=== PATIENT | female | born 1935 | race Caucasian/White ===

== ENCOUNTER 2019-02-20 22:09 | Inpatient (IN) ==
[2019-02-20] MEDS ORDERED: CARDIZEM IV ONE (22:13)
[2019-02-20] MEDS ORDERED: NS 1,000 ML IV ONE ×2 (22:13→23:29)
[2019-02-20 22:22] LABS: BASO# 0.05 X1000 (0.0-0.2); BASO% 0.8 % (0.0-0.8); EOS% 4.9 % (0.0-10.0); HEMATOCRIT 34.1 % (37.0-47.0); HEMOGLOBIN 10.8 g/dL (12.0-16.0); LYMPH% 17.9 % (20.5-51.1); MCH 26.3 PG (27-31); MCHC 31.7 g/dL (33-37); MCV 83.2 FL (81-99); MONO# 1.06 X1000 (0.11-0.59); MONO% 17.2 % (1.7-9.3); MPV 9.5 FL (7.4-10.4); NEUT# 3.64 X1000 (1.4-6.5); NEUT% 59.2 % (42.2-75.2); PLT 196 X1000 (130-400); RDW 14.2 % (11.5-14.5); WBC 6.15 X1000 (4.8-10.8)
[2019-02-20 22:33] LABS: AGAP 12; ALKALINE PHOSPHATASE 111 U/L (32-104); BUN 12 mg/dL (8-22); CALCIUM 9.2 mg/dL (8.8-10.2); CHLORIDE 102 mmol/L (98-107); COSMO 283; CREATININE 0.7 mg/dL (0.5-0.9); ESTIMATED GFR > 60; GLUCOSE 126 mg/dL (70-104); GOT 22 U/L (10-30); GPT 12 U/L (10-36); MAGNESIUM 1.6 mg/dL (1.5-2.7); POTASSIUM 4.1 mmol/L (3.5-5.1); SODIUM 141 mmol/L (136-145); TCO2 27 mmol/L (25-35); TOTAL PROTEIN 6.2 g/dL (6.3-8.3)
[2019-02-20 23:29] LABS: INR 1.05; PROTIME 14.2 Seconds (11.0-16.0); PTT 31.5 Seconds (22.3-41.8)
[2019-02-20] MEDS ORDERED: ZOFRAN IV PRN (23:30)
[2019-02-20] MEDS ORDERED: TYLENOL PO PRN (23:30)
[2019-02-20] MEDS ORDERED: MORPHINE IV PRN (23:30)
--- NOTE | 2019-02-20 23:39 | PROVIDER DOCUMENTATION ---
This chart was entered by Jenni Burkett Scribe, acting as scribe for Rusty Patton MD. HPI-Chest Pain - General Chief Complaint: Palpitations Stated Complaint: CP Time Seen by Provider: 02/20/19 22:05 Source: patient Allergies/Adverse Reactions: Patient Allergies Allergy/AdvReac Type Severity Reaction Status Date / Time Corticosteroids Allergy Mild NAUSEA Verified 12/25/18 04:22 (Glucocorticoids) morphine Allergy Mild ABDOMINAL Verified 12/25/18 04:22 PAIN Penicillins Allergy Mild RASH Verified 12/25/18 04:22 quinine Allergy Mild HEADACHE Verified 12/25/18 04:22 Sulfa (Sulfonamide Allergy Mild RASH Verified 12/25/18 04:22 Antibiotics) Home Medications: Home Medication List Medication Instructions Recorded Confirmed Last Taken Type LISINOpril [Prinivil] 40 mg PO DAILY 02/16/14 12/25/18 06/03/16 History ROSUVAstatin [Crestor] 20 mg PO QHS 02/16/14 12/25/18 1 Day Ago History ~11/03/15 Diltiazem HCl [Diltiazem 24Hr ER] 300 mg PO DAILY #0 02/17/14 12/25/18 11/04/15 Rx Isosorbide Mononitrate [Isosorbide 60 mg PO BID 02/08/15 12/25/18 11/04/15 History Mononitrate ER] Pantoprazole [Protonix] 40 mg PO DAILY 10/04/15 12/25/18 11/04/15 History Zolpidem Tartrate 10 mg PO PRN PRN 10/04/15 12/25/18 1 Day Ago History ~11/03/15 Apixaban [Eliquis] 5 mg PO BID 11/04/15 12/25/18 11/04/15 History Aspirin 81 mg PO DAILY 11/04/15 12/25/18 11/04/15 History Cyclobenzaprine [Flexeril] 10 mg PO PRN PRN 06/14/18 12/25/18 Unknown History Donepezil HCl 5 mg PO HS 06/14/18 12/25/18 Unknown History Nitroglycerin Sl [Nitroglycerin] 0.4 mg SL PRN PRN 06/14/18 12/25/18 Unknown History Alprazolam 0.25 mg PO DAILY PRN PRN 12/25/18 12/25/18 Unknown History Clonidine [Catapres] 0.1 mg PO DAILY PRN PRN 12/25/18 12/25/18 Unknown History Fluoxetine [Prozac] 10 mg PO DAILY 12/25/18 12/25/18 Unknown History Tramadol HCl 50 mg PO TID PRN PRN 12/25/18 12/25/18 Unknown History - History of Present Illness-CP Nature of Presenting Problem: Pt presents with SVT, started today, pt has been having arrthymias on and off for the last couple of months, saw pcp 2 weeks ago and ordered a holter monitor but it wasn't placed until yesterday, pt reports cp, entire chest, comes and goes, no radiation, not having cp now, pt denies f/c, valdez, sob, ap, n/vd/. pt is lying in bed in no acute distress. Location: reports: substernal Chest Pain Radiation: reports: no radiation Quality of Pain: reports: pressure Severity in ED: mild Onset/Duration: 4-6 hours ago Timing: gone now Context/Activities at Onset: reports: none Modifying Factors: improves with: nothing Associated Symptoms: reports: denies symptoms Nitro Today/Relief: no nitro taken today Aspirin Treatment Today: no aspirin today Prior Chest Pain/Cardiac Workup: reports: cardiac cath Similar Symptoms Previously?: Yes Recently Seen Here or By Another Healthcare Provider: No Review of Systems - Adult - REVIEW OF SYSTEMS - ADULT Constitutional: reports: no symptoms reported Eyes: reports: no symptoms reported Ears, Nose, Mouth & Throat: reports: no symptoms reported Cardiovascular: reports: see HPI Respiratory: reports: no symptoms reported Gastrointestinal: reports: no symptoms reported Genitourinary: reports: no symptoms reported Musculoskeletal: reports: no symptoms reported Integumentary: reports: no symptoms reported Neurological: reports: no symptoms reported Psychiatric: reports: no symptoms reported Endocrine: reports: no symptoms reported Hematologic/Lymphatic: reports: no symptoms reported Allergic/Immunologic: reports: no symptoms reported All Other Systems: Reviewed and Negative Past History - Adult - PAST MEDICAL HISTORY-ADULT Review of Records: reports: Old Records Reviewed, Nursing Assessment Review, Medications Reviewed, Social history reviewed & non-contributory. Major Childhood Illnesses: reports: denies history Cardiovascular: reports: CAD, HTN, hyperlipidemia Respiratory: reports: COPD, cancer (Breast) Gastrointestinal: reports: denies history Obstetrical/Gynecological: reports: denies history Genitourinary: reports: denies history Musculoskeletal: reports: denies history Neurological: reports: denies history Psychiatric: reports: denies history Endocrine/Immune: reports: denies history Other Conditions: reports: denies history - PRIOR SURGERIES/PROCEDURES Surgical/Procedure History: reports: appendectomy, cholecystectomy, cardiac stent (x 3), hysterectomy, tonsillectomy, other (Mastectomy) - IMMUNIZATION STATUS Childhood Immunizations: See Nurse Assessment Flu Vaccine: See Nurse Assessment - FAMILY HISTORY Family History: reviewed, not pertinent Physical Exam-General - PHYSICAL EXAM-ADULT Initial Vital Signs Reviewed: Yes - CONSTITUTIONAL General Appearance: appears well - EYES Eyes: PERRL/EOMI - HEAD, EARS, NOSE, MOUTH & THROAT HENMT: normocephalic/atraumatic - NECK Neck: normal inspection - RESPIRATORY Respiratory: no respiratory distress, no accessory muscle use - CARDIOVASCULAR Cardiovascular: tachycardia - GASTROINTESTINAL (ABDOMEN) Abdominal Exam: non tender, soft - LYMPHATIC Lymphatic: no adenopathy - MUSCULOSKELETAL Back Exam: normal inspection Extremity: normal range of motion - SKIN Integumentary: normal color - NEUROLOGIC Neurologic: [place] aide II-XII nml as tested - PSYCHIATRIC Psych/Mental Status: normal mood/affect Progress - PLAN OF CARE/RESULTS Progress/Plan/Lab Results: Vital Signs - 8 hr 02/20/19 22:12 Temperature 97.9 F Pulse Rate 130 H Respiratory Rate 15 Blood Pressure 137/94 O2 Sat by Pulse Oximetry 97 Laboratory Results - last 24 hr 02/20/19 02/20/19 02/20/19 22:05 22:05 22:05 WBC 6.15 RBC 4.10 L Hgb 10.8 L Hct 34.1 L MCV 83.2 MCH 26.3 L MCHC 31.7 L RDW Std Deviation 14.2 Plt Count 196 MPV 9.5 Immature Gran % (Auto) 0.0 Neut % (Auto) 59.2 Lymph % (Auto) 17.9 L Conway % (Auto) 17.2 H Eos % (Auto) 4.9 Baso % (Auto) 0.8 Immature Gran # (Auto) 0.00 Neut # (Auto) 3.64 Lymph # (Auto) 1.10 L Conway # (Auto) 1.06 H Eos # (Auto) 0.30 Baso # (Auto) 0.05 PT INR PTT (Actin FS) Sodium 141 Potassium 4.1 Chloride 102 Carbon Dioxide 27 Anion Gap 12 BUN 12 Creatinine 0.7 Estimated GFR/1.73 m2 > 60 BUN/Creatinine Ratio 17 Glucose 126 H Calculated Osmolality 283 Calcium 9.2 Phosphorus Magnesium 1.6 Total Bilirubin 0.20 AST 22 ALT 12 Alkaline Phosphatase 111 H Troponin T Urx-F-Gdjunlptsoa Pept 349 Total Protein 6.2 L Albumin 4.0 Globulin 2.0 Albumin/Globulin Ratio 2.0 02/20/19 02/20/19 02/20/19 22:05 22:30 22:30 WBC RBC Hgb Hct MCV MCH MCHC RDW Std Deviation Plt Count MPV Immature Gran % (Auto) Neut % (Auto) Lymph % (Auto) Conway % (Auto) Eos % (Auto) Baso % (Auto) Immature Gran # (Auto) Neut # (Auto) Lymph # (Auto) Conway # (Auto) Eos # (Auto) Baso # (Auto) PT 14.2 INR 1.05 PTT (Actin FS) 31.5 Sodium Potassium Chloride Carbon Dioxide Anion Gap BUN Creatinine Estimated GFR/1.73 m2 BUN/Creatinine Ratio Glucose Calculated Osmolality Calcium Phosphorus 6.1 H Magnesium Total Bilirubin AST ALT Alkaline Phosphatase Troponin T < 0.010 Pbg-B-Euvlnvrhpjq Pept Total Protein Albumin Globulin Albumin/Globulin Ratio Orders Category Date Time Status Admit - [facility] Routine AdmDCTranf 02/20/19 23:30 Active Activity - Up Ad Adri ORDERED Care 02/20/19 23:30 Active Call Admitting on Arrival AT ADMISSION Care 02/20/19 23:31 Active Nursing- Obtain EKG ONCE Care 02/20/19 22:12 Active Resuscitation Status Routine Care 02/20/19 23:30 Ordered Saline Loc DIRECTED Care 02/20/19 23:30 Active Vital Signs Order ROUTINE Care 02/20/19 23:30 Active Z-Document. for Tele Applied ORDERED Care 02/20/19 23:32 Active Heart Healthy Diet Diet 02/20/19 Diet Enter Time Active cxr [CHEST-1 VIEW] [RAD] Stat Exams 02/20/19 22:11 Taken CBC WITH ELECTRONIC DIFF [HEME] Stat Lab 02/20/19 22:05 Completed COMPREHENSIVE METABOLIC PANEL [CHEM] Stat Lab 02/20/19 22:05 Completed MAGNESIUM [CHEM] Stat Lab 02/20/19 22:05 Completed PHOSPHORUS [CHEM] Stat Lab 02/20/19 22:30 Completed PRO B-NATRIURETIC PEPTIDE Stat Lab 02/20/19 22:05 Completed PROTIME WITH INR [COAG] Stat Lab 02/20/19 22:05 Completed PTT [COAG] Stat Lab 02/20/19 22:05 Completed TROPONIN T Q8HR Lab 02/21/19 05:00 Uncollected TROPONIN T Q8HR Lab 02/21/19 13:00 Uncollected TROPONIN T Q8HR Lab 02/21/19 21:00 Uncollected TROPONIN T Stat Lab 02/20/19 22:30 Completed 0.9% Sodium Chloride Inj [Ns] 1,000 ml Med 02/20/19 23:29 Active IV 125 mls/hr 0.9% Sodium Chloride Inj [Ns] 1,000 ml Med 02/20/19 22:13 Discontinued IV 999 mls/hr Acetaminophen [Tylenol] Med 02/20/19 23:30 Ordered 650 mg PO Q6H PRN PRN Diltiazem 100 mg/Ns [Cardizem 100 mg/Ns] Med 02/20/19 23:30 Ordered 100 mg in 100 ml IV 2.5 mls/hr Diltiazem [Cardizem] Med 02/20/19 22:13 Discontinued 10 mg IV NOW ONE Morphine Med 02/20/19 23:30 Ordered 2 mg IV Q2H PRN PRN Ondansetron [Zofran] Med 02/20/19 23:30 Ordered 4 mg IV Q4H PRN PRN Oxygen Device Routine Oth 02/20/19 23:31 Active Telemetry [OM.EQ] Routine Oth 02/20/19 23:30 Active ECHO COMPL W/Contrast Definity Routine Ther 02/21/19 06:00 Ordered EKG [EKG] Stat Ther 02/20/19 22:12 Ordered Transfer/Admit Order [TRANSFER] Routine Transfer 02/20/19 23:32 Ordered Result Diagrams: 02/20/19 22:05 02/20/19 22:05 - EKG 1 Time of EKG reading by physician:: 22:01 EKG Read and Signed by:: Rusty Patton EKG Interpretation (*Must complete 3 of following elements*): Abnormal (inferior infarct-age undetermined, anterior infarct-age undetermined, st and t wave abnormality-consider lateral ischemia) Rate: 143 Rhythm: svt [place]: left ST Wave: non-specific ST changes Departure - Departure Date of Disposition Decision: 02/20/19 Time of Disposition Decision: 23:35 DIAGNOSIS: SVT (supraventricular tachycardia) Disposition: ADMITTED INPATIENT 09 Certified Medical Emergency: Emergent Condition: Critical - Critical Care Note This patient required my direct & personal management of CC.: Yes Total Time (mins): 38 Critical Care Statement: This patient required my direct personal management to treat or rule out processes, the absence of which, could potentiallly result in sudden, clinically significant life or limb threatening deterioration. Attestation - Physician/ RICHAR Attestation Patient care was provided by Advanced Practice Provider:: No The physician spent face to face time with patient:: Yes Advanced Practice Provider documentation review:: Supervising physician onsite and consulted in the evaluation and care of this patient. The physician did have a face to face encounter with the patient. This chart was documented by the indicated scribe, (Jenni Burkett Scribe) and accurately reflects the services I performed and decisions made by me, Rusty Patton MD, as attested by the provider's signature.
[2019-02-21] MEDS ORDERED: CARDIZEM 125/NS 125 MG/125 ML IVPB ONE (00:34)
[2019-02-21] MEDS: CARDIZEM 100 MG/NS 100 MG/100 ML IVPB IV SCH ×2 (00:44→05:37)
--- NOTE | 2019-02-21 07:19 | Diag Imaging Result Doc PS360 ---
EXAM: CHEST-1 VIEW - 02/20/2019 HISTORY: chest pain TECHNIQUE: Portable chest COMPARISON: 02/08/2019 FINDINGS: Heart size is normal. There is tortuosity of the thoracic aorta similar to prior. There is stable elevation of the right hemidiaphragm. The lungs appear clear. There is no pleural effusion or pneumothorax identified. IMPRESSION: No acute changes. Electronically signed by Rene Campbell 02/21/2019 7:17 AM
[2019-02-21] MEDS ORDERED: PROZAC PO SCH (09:00)
[2019-02-21] MEDS ORDERED: CARDIZEM CD PO ONE ×4 (09:32→11:30)
[2019-02-21] MEDS ORDERED: AMBIEN PO PRN (09:50)
[2019-02-21] MEDS ORDERED: CATAPRES PO PRN (09:50)
[2019-02-21] MEDS ORDERED: FLEXERIL PO PRN (09:50)
[2019-02-21] MEDS ORDERED: ULTRAM PO PRN (09:50)
[2019-02-21] MEDS ORDERED: NITROGLYCERIN SL PRN (09:50)
[2019-02-21] MEDS ORDERED: XANAX PO PRN (09:50)
[2019-02-21] MEDS ORDERED: ASPIRIN PO SCH (10:00)
[2019-02-21] MEDS ORDERED: ELIQUIS PO SCH ×3 (10:15→21:00)
--- NOTE | 2019-02-21 10:56 | EKG Report ---
Test Performed on : 02/21/2019 09:54:36 AM Test Reason : AFIB Blood Pressure : / mmHG Vent. Rate : 081 BPM Atrial Rate : 081 BPM P-R Int : 174 ms QRS Dur : 078 ms QT Int : 362 ms P-R-T Axes : 048 027 090 degrees QTc Int : 420 ms Normal sinus rhythm. Anteroseptal infarct (cited on or before 04-JUN-2016) Abnormal ECG When compared with ECG of 20-FEB-2019 22:00, (Unconfirmed) Vent. rate has decreased BY 62 BPM QRS duration has decreased Criteria for Inferior infarct are no longer present Questionable change in initial forces of Septal leads T wave amplitude has decreased in Anterior leads T wave inversion no longer evident in Lateral leads Confirmed by Dao Jaquez MD ([id number]) on 02/24/2019 11:11:54 AM
[2019-02-21] MEDS ORDERED: CARDIZEM PO ONE (11:03)
[2019-02-21 12:26] VITALS: BP 171/84
[2019-02-21] MEDS ORDERED: ELIQUIS PO ONE (13:14)
--- NOTE | 2019-02-21 13:34 | CARDIOLOGY CONSULTATION ---
DATE: 02/21/2019 HISTORY OF PRESENT ILLNESS: An 83-year-old lady with history of atrial fibrillation, comes with complaints of increasing palpitations. She was noted to have a heart rate significantly elevated associated with shortness of breath. The patient denies chest pain suggestive of angina. The patient has been having increasing episodes of palpitations off and on for the last 2 weeks. Associated with that, she had some chest discomfort as well. There is no dizziness or syncope. REVIEW OF SYSTEMS: A 14 point review of system was done.Respiratory System: There is no history of cough, expectoration, hemoptysis. There is no history of fevers or chills. Endocrine System: Stable. When she came to the emergency room, she had a heart rate of 140 beats per minute. Subsequently she converted to sinus rhythm. PAST MEDICAL HISTORY: 1. Coronary artery disease status post stent placement to left anterior descending artery by cardiac catheterization 06/20/2008. 2. Last cardiac catheterization, 05/13/2013. LAD and RCA stents were patent. 3. Last stress test was in 2013. There was no evidence of ischemia. 4. History of paroxysmal atrial fibrillation. 5. Hypertension. 6. Hyperlipidemia. 7. 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 HOME MEDICATIONS: Include: 1. Eliquis 5 mg. 2. Alprazolam 0.25. 3. Tramadol 50. 4. Donepezil 5. 5. Enteric-coated aspirin 81. 6. Zolpidem 10. 7. Isosorbide 60. 8. Diltiazem 300. 9. Lisinopril 40. 10. Lovastatin 28. ALLERGIES: She is allergic to corticosteroid, penicillin, quinine. PHYSICAL EXAMINATION: On examination, blood pressure was 170/80. Cardiovascular System: Normal jugular venous pressure. There no thyromegaly. There was no carotid bruit. First and second heart sounds were heard. There is faint systolic murmur. Respiratory System: Normal air entry. There were no crepitations or rhonchi. Abdomen was soft, nontender. There was no guarding or rigidity. Bowel sounds were heard. Central nervous system: Alert and oriented. Was moving all 4 extremities. Examination of extremities revealed no pedal edema. HEENT: Atraumatic, normocephalic. Pupils were equal and reacting to light. ASSESSMENT AND PLAN: Ms. Abril Mims is an 83-year-old lady with history of coronary artery disease, status post stent placement to left anterior descending artery and right coronary artery in the past, paroxysmal atrial fibrillation, hypertension, and hyperlipidemia, who comes with complaints of increasing palpitations. Noted to be in atrial fibrillation with rapid ventricular rate. Currently, she is in sinus rhythm. LABORATORY EXAMINATION: Sodium 141, potassium 4.1, BUN 12, creatinine 0.7. Cardiac enzymes were negative. Hematology: Hemoglobin 10, hematocrit 34, platelet count of 196. RECOMMENDATIONS: 1. Currently she is in sinus rhythm. Her Cardizem was increased to 360. I agree with that. 2. For anticoagulation, she is on Eliquis 2.5 mg twice daily in addition to aspirin. Given her known coronary artery disease, would recommend continuing with that. 3. Hypertension. Change of medications as above. In addition, she takes lisinopril. I have not made any changes. 4. Hyperlipidemia. She is on Crestor 20 mg a day. Would recommend continuing medications. 5. She has gastroesophageal reflux disease. Continue with Protonix daily. Thank you for the consult. We will follow hospital course. cc: Chang Aldana MD
--- NOTE | 2019-02-21 13:39 | PROGRESS NOTE ---
DATE: 02/21/2019 SUBJECTIVE: Patient has no major complaints. She came in with chest pain, shortness of breath, and atrial fibrillation with rapid ventricular response. That has since vastly improved. She has spontaneously converted. She is usually on long-term Cardizem and she is on Eliquis. She is followed by Dr. Key. OBJECTIVE: Her exam really unremarkable. No swelling, no rales, no rhonchi. Heart rate is now regular. PLAN: To increase her Cardizem. We have ordered an echo. We have ordered serial enzymes. Cardiology consult and we will follow accordingly. This is a [id number] encounter note with Cecelia Sosa. cc: MD Lakhwinder Sargent MD
--- NOTE | 2019-02-21 14:47 | HISTORY AND PHYSICAL ---
PRIMARY CARE PROVIDER: Dr. Lakhwinder Huang. PHOTOGRAPHER ASSISTANT: Dr. Key. CHIEF COMPLAINT: Heart rate running away with shortness of breath and chest pain. HISTORY OF PRESENT ILLNESS: Ms. Mims is an 83-year-old female who carries a past medical history of coronary artery disease status post OH with 3 stents, hypertension, hyperlipidemia, COPD, right breast cancer with right mastectomy, paroxysmal atrial fibrillation, who stated at home she could feel her heart rate running away with her. She took her regular medicines. It calmed down a little bit. However, late yesterday afternoon, her heart rate started running away with her again. She took some more medications, it did not improve. She took a low-dose aspirin. She became short of breath, started having chest pain and felt a squeezing sensation around her waistline like somebody was tightening a belt, so she came to the ED where she was found to be in atrial fibrillation with RVR. She was given IV bolus of Cardizem, and was going to be initiated on a Cardizem drip. However, she converted, stayed the night in the ICU. She has been in sinus rhythm since. She has been evaluated by Cardiology. We will have her follow up with Dr. Key as an outpatient and will have her repeat an echocardiogram. I did increase her p.o. Cardizem to 360 from 300. PAST MEDICAL HISTORY: 1. Coronary artery disease with OH and 3 stents. 2. Hypertension. 3. Hyperlipidemia. 4. COPD. 5. Right breast cancer with right mastectomy. 6. Paroxysmal atrial fibrillation. PAST SURGICAL HISTORY: Right mastectomy, appendectomy, cholecystectomy, PTCA with stents, hysterectomy, tonsillectomy. SOCIAL HISTORY: She lives alone. She is originally from the [place] and came down here to help her sister take care of her mother who is now . She does have a daughter that lives nearby. No tobacco, alcohol or illicit drug use. She also lives with a small dog. She did have a fall with that dog 5 days ago. There was some old bruising to her left side of her forehead and cheek as well as some bruising and scrapes to her left shoulder. FAMILY HISTORY: Cancer in both mother and father, unknown tight. Two brothers with OH. ALLERGIES: Corticosteroid causes nausea. Morphine, abdominal pain. Penicillin, rash. Quinine, headache. Sulfa, rash. HOME MEDICATIONS: 1. Crestor 20 mg p.o. at bedtime. 2. Xanax 0.25 mg p.o. daily p.r.n. anxiety. 3. Aspirin 81 mg p.o. daily. 4. Catapres 0.1 mg p.o. daily p.r.n. blood pressure. 5. Donepezil 5 mg p.o. at bedtime. 6. Eliquis 2.5 mg p.o. b.i.d. 7. Flexeril 10 mg p.o. p.r.n. 8. Fluoxetine 20 mg p.o. daily. 9. Isosorbide mononitrate 60 mg p.o. b.i.d. 10. Nitroglycerin sublingual 0.4 mg sublingual p.r.n. chest pain. 11. Prinivil 40 mg p.o. daily. 12. Protonix 40 mg p.o. daily. 13. Tramadol 50 mg p.o. t.i.d. p.r.n. pain. 14. Ambien 10 mg p.o. p.r.n. sleep. 15. Cardizem CD 300 mg p.o. daily. This has been increased to 360 daily. REVIEW OF SYSTEMS: A 14 point review of systems completely negative except for those mentioned in HPI. DISCHARGE DIET: Healthy heart. PHYSICAL EXAMINATION: VITAL SIGNS: Temperature is 97.9 degrees temporal, heart rate 78, respirations 15, blood pressure 171/84, O2 is 97% on room air. GENERAL: Ms. Mims is a feisty 83-year-old female who is sitting up in the bed eating breakfast. No acute distress. HEENT: Atraumatic, normocephalic. PERRL. NECK: Supple trachea midline. CARDIOVASCULAR: S1, S2 appreciated. No murmurs, gallops, rubs noted. RESPIRATORY: Lung sounds clear bilaterally. GASTROINTESTINAL: Soft, nontender, nondistended. Positive bowel sounds 4 quadrants. EXTREMITIES: Negative for edema. No JVD noted. SKIN: She does have prednisone type looking skin to her upper extremities. She has bruising, old greenish-yellow bruises to her left forehead, her left cheek as well as bruising to her right shoulder with some scrapings secondary from a fall that she had obtained 5 days earlier after tripping over her little dog. NEUROLOGIC: No focal deficits noted. DIAGNOSTIC DATA: At first, EKG was atrial fibrillation with RVR. Follow-up EKG was normal sinus rhythm. DISCHARGE DIAGNOSES: 1. Atrial fibrillation with rapid ventricular response, now in sinus rhythm. She did not require a Cardizem drip. She converted after a bolus in the ED. Her Cardizem was increased from 300 to 360. She was evaluated by Cardiology. She will continue on her Eliquis 2.5 mg twice daily in addition to her low dose aspirin. We will have her follow up with her regular bakery technician, Dr. Key, and check an echocardiogram. 2. Hypertension. She will continue on her lisinopril. 3. Hyperlipidemia. Continue Crestor. 4. Gastroesophageal reflux disease. Continue with Protonix. 5. Further recommendations to follow physician evaluation. Dictated by ARTI Meza for Deep Raymond MD cc: MD Amador Sargent MD
--- NOTE | 2019-02-21 14:56 | EKG Report ---
Test Performed on : 02/20/2019 9:59:35 PM Test Reason : chest pain Blood Pressure : / mmHG Vent. Rate : 146 BPM Atrial Rate : 122 BPM P-R Int : 000 ms QRS Dur : 120 ms QT Int : 346 ms P-R-T Axes : 000 -52 091 degrees QTc Int : 539 ms Wide QRS tachycardia. Left axis deviation Inferior infarct , age undetermined Anterior infarct , age undetermined ST & T wave abnormality, consider lateral ischemia Abnormal ECG When compared with ECG of 08-FEB-2019 14:56, (Unconfirmed) Wide QRS tachycardia. has replaced Sinus rhythm. Vent. rate has increased BY 52 BPM Unconfirmed Result
--- NOTE | 2019-02-21 16:55 | EKG Report ---
Test Performed on : 02/20/2019 10:00:20 PM Test Reason : ER Blood Pressure : / mmHG Vent. Rate : 143 BPM Atrial Rate : 144 BPM P-R Int : 000 ms QRS Dur : 116 ms QT Int : 346 ms P-R-T Axes : 000 -51 094 degrees QTc Int : 533 ms Supraventricular tachycardia. Left axis deviation Inferior infarct , age undetermined Anterior infarct , age undetermined ST & T wave abnormality, consider lateral ischemia Abnormal ECG When compared with ECG of 20-FEB-2019 21:59, (Unconfirmed) Sinus rhythm. has replaced Wide QRS tachycardia. Unconfirmed Result
[2019-02-21] MEDS ORDERED: CRESTOR PO SCH (21:00)
[2019-02-21] MEDS ORDERED: IMDUR PO SCH (21:00)
[2019-02-21] MEDS ORDERED: ARICEPT PO SCH (21:00)
[2019-02-22] MEDS ORDERED: CARDIZEM CD PO SCH ×3 (09:00)
[2019-02-22] MEDS ORDERED: ELIQUIS PO SCH (09:00)
[2019-02-22] MEDS ORDERED: PROTONIX PO SCH (09:00)
[2019-02-22] MEDS ORDERED: PRINIVIL PO SCH (09:00)
--- NOTE | 2019-03-17 20:47 | DISCHARGE SUMMARY ---
ADMISSION DATE: 02/21/2019 DISCHARGE DATE: 02/21/2019 DISCHARGE DIAGNOSIS: Atrial fibrillation which I think was new onset. In any case the patient came in 83-year-old with palpitations. She had RVR. She was given IV Cardizem and then she spontaneously converted. Cardiology was consulted. Her Cardizem was increased from 300 to 360. Cardiology was consulted. She was on Eliquis already. Her echocardiogram I do not think was completed. Cardiology recommended increasing continue Eliquis and follow up as an outpatient. She was also placed on lisinopril. She was already on Crestor. DISCHARGE MEDICATIONS: Crestor 20, Xanax 0.25 daily, aspirin 81 daily, clonidine 0.1 daily, donepezil 5 at bedtime, Eliquis 2.5 it says at bedtime but she should be on it twice a day, Flexeril 10 p.r.n., Prozac 20 daily, Imdur 60 b.i.d., nitroglycerin p.r.n., lisinopril 40 daily, Protonix 40 daily, tramadol 50 t.i.d. p.r.n., Ambien 10 daily and Cardizem CD 360 daily. DISCHARGE CONDITION: Stable. Just need to verify that she is taking Eliquis twice a day. TIME SPENT: 32 minutes. cc: Chang Aldana MD
== END 2019-02-21 15:52 | disposition home or self-care (01) | DRG 310 ==
LOC: P.ED 22:09 → P.ICU 02-21 00:12
PROVIDERS: ATTEND Internal Medicine
CPT/HCPCS: 71010; 71045; 80053; 83735; 83880; 84100; 84484; 85025; 85610; 85730; 93005; 93010; 93306; 96374; 99285; A9270; C8929; J7030; Q9957